=== PATIENT | male | born 1935 | race Caucasian/White ===

== ENCOUNTER 2022-12-24 07:55 | Emergency (ER) | payer OTHER ==
[2022-12-24 08:53] LABS: #Basophils 0.1 thou/uL (0.0-0.2); #Lymphocytes 1.4 thou/uL (1.20-3.40); #Monocytes 0.3 thou/uL (0.11-0.59); #Neutrophils 6.8 thou/uL (1.40-6.50); %Basophils 0.9 % (0.0-1.0); %Eosinophils 0.2 % (0.0-10.0); %Lymphocytes 16.6 % (21.0-51.0); %Neutrophils 79.4 % (42.0-75.0); Hematocrit 41.7 % (42.0-52.0); Hemoglobin 13.2 g/dL (14.0-18.0); Mean Corpuscular HGB CONC 31.6 g/dL (32.0-36.0); Mean Corpuscular Hemoglobin 28.8 pg (27.0-31.0); Mean Corpuscular Volume 91.1 fl (78.0-98.0); Mean Platelet Volume 11.4 fL (7.4-10.4); Platelet Count 266 10x3/uL (130-400); Red Blood Cell (RBC) Count 4.58 mill/uL (4.70-6.10)
[2022-12-24 09:00] LABS: White Blood Cell (WBC) Count 8.6 10x3/uL (4.8-10.8)
[2022-12-24] MEDS ORDERED: Iopamidol 370 76% 100 ML VIAL ONE (09:00)
[2022-12-24 09:01] LABS: ALT (SGPT) 12 U/L (8-55); AST (SGOT) 34 U/L (5-34); Albumin 3.1 g/dL (3.4-4.8); Alkaline Phosphatase 306 U/L (40-110); Anion Gap 14 mmol/L (10-20); BUN (Urea Nitrogen) 14 mg/dL (8.4-25.7); Bilirubin, Total 0.8 mg/dL (0.2-1.2); Calc. Creatinine Clearance 0 mL/min (70-130); Calcium 8.8 mg/dL (7.8-10.44); Carbon Dioxide 24 mmol/L (23-31); Chloride 104 mmol/L (98-107); Estimated GFR 72; Globulin 4.3 g/dL (2.4-3.5); Glucose 162 mg/dL (83-110); Lipase 108 U/L (8-78); Potassium 3.6 mmol/L (3.5-5.1); Protein, Total 7.4 g/dL (5.8-8.1); Sodium 138 mmol/L (136-145); Troponin I 0.027 ng/mL (< 0.028)
[2022-12-24 09:08] LABS: Bilirubin Negative (Negative); Blood, Urine Negative (Negative); Clarity Clear (Clear); Glucose, Urine (Dipstick) Negative (Negative); Ketone, Urine Negative (Negative); Leukocyte Trace (Negative); Nitrite Negative (Negative); Protein, Urine (Dipstick) Negative (Neg-Trace); Specific Gravity, Urine 1.015 (1.005-1.030)
[2022-12-24 09:11] LABS: Bacteria/HPF 1+ HPF (None Seen); CAUTI Indications for Culture Pelvic or flank pain; RBC/HPF None Seen HPF (0-3); Squamous Epithelial None Seen HPF (0-3); WBC/HPF 0-3 HPF (0-3)
[2022-12-24 09:12] LABS: Urine Culture Reflex No No
[2022-12-24] MEDS ORDERED: Piperacillin/Tazobactam 4.5 GM VIAL ONE (10:32)
[2022-12-24] MEDS ORDERED: cefTRIAXone (ROCEPHIN) 1 GM VIAL ONE (10:33)
[2022-12-24] MEDS ORDERED: Sodium Chloride 0.9% 200 ML ONE (10:33)
[2022-12-24 12:46] LABS: Troponin I 0.028 ng/mL (< 0.028)
[2022-12-24 16:19] LABS: Troponin I 0.026 ng/mL (< 0.028)
[2022-12-24] MEDS ORDERED: Ketorolac Tromethamine 30 MG/ML VIAL ONE (20:06)
== END 2022-12-24 22:16 | disposition home or self-care (01) ==
LOC: NAV ERS 07:55
DX: R07.9 Chest pain, unspecified (principal); M54.50 Low back pain, unspecified; N39.0 Urinary tract infection, site not specified; I10 Essential (primary) hypertension; E11.9 Type 2 diabetes mellitus without complications; J44.9 Chronic obstructive pulmonary disease, unspecified; Z87.891 Personal history of nicotine dependence; Z79.899 Other long term (current) drug therapy; Z79.82 Long term (current) use of aspirin; Z79.4 Long term (current) use of insulin
CPT/HCPCS: 36415; 36416; 71045; 74177; 80053; 81001; 83690; 83880; 84484; 85025; 93005; 96365; 96367; 96375; J0696; J1885; J2543; J3490; Q9967